=== PATIENT | female | born 1975 ===

== ENCOUNTER 2016-08-18 17:58 | Emergency (ER) | payer OTHER ==
[2016-08-18 18:24] VITALS: BP 134/80; PULSE 74; RESP 18; TEMP 98.2; O2SAT 100
--- NOTE | 2016-08-18 19:10 | ED PDOC ---
HPI: Eye Injury/Pain Time Seen by Provider: 08/18/16 18:03 Chief Complaint (Nursing): Eye Problem Chief Complaint (Provider): Right Eye Irritation History Per: Patient History/Exam Limitations: no limitations Current Symptoms Are (Timing): Still Present Additional Complaint(s): Michelle Contreras, a 40 year oldfemale, presents to the ED with irritation to her right eye. The patient reports that she was working with nail glue and felt like some splashed into her eye. She states that she tried to clean the eye and when she did so a hard clear piece of glue came out. Patient states that she feels like her eye is still irritated and she might have gotten some glue into her eyelashes. Past Medical History Reviewed: Historical Data, Nursing Documentation, Vital Signs Vital Signs: Last Vital Signs Temp 98.2 F 08/18/16 18:22 Pulse 74 08/18/16 18:22 Resp 18 08/18/16 18:22 BP 134/80 08/18/16 18:22 Pulse Ox 100 08/18/16 18:22 - Medical History PMH: No Chronic Diseases - Surgical History Surgical History: No Surg Hx - Family History Family History: States: Unknown Family Hx - Social History Current smoker - smoking cessation education provided: No Alcohol: None Drugs: Denies - Home Medications Home Medications: Ambulatory Orders Medication Instructions Recorded Cyclobenzaprine [Cyclobenzaprine 10 mg PO Q8 PRN #12 tab 10/11/15 HCl] Ibuprofen [Motrin] 600 mg PO TID PRN #30 tab 10/11/15 oxyCODONE/Acetaminophen [Percocet 1 ea PO Q6 PRN #10 tab 10/11/15 5/325 mg Tab] Erythromycin 0.5% [Erythromycin 3.5 gm OP Q4H #1 tube 08/18/16 0.5% Oint] - Allergies Allergies/Adverse Reactions: Allergies Allergy/AdvReac Type Severity Reaction Status Date / Time No Known Allergies Allergy Verified 10/11/15 16:14 Review of Systems Eyes: Negative for: Pain (Eye irritation), Vision Change Physical Exam - Reviewed Nursing Documentation Reviewed: Yes Vital Signs Reviewed: Yes - Physical Exam Appears: Positive for: Non-toxic, No Acute Distress Head Exam: Positive for: NORMAL INSPECTION Skin: Positive for: Normal Color, Warm, Dry Eye Exam: Positive for: EOMI, PERRL, Other (No erythema of conjunctiva or sclera ; No abrasions or foreign bodies.). Negative for: Conjunctival injection Neurologic/Psych: Positive for: Alert, Oriented, Gait - ECG O2 Sat by Pulse Oximetry: 100 (RA) Pulse Ox Interpretation: Normal Medical Decision Making Medical Decision Makin Initial Impression: 40 year old female presenting with eye irritation Initial Plan: 18:30 Fluorescein exam showed no abrasions or foreign bodies. Eyes were irrigated with 250cc using a herbie lens. Patient will be discharged home with eye drops. Scribe Attestation Documented by Aline Espino acting as a scribe for Louise Murillo PA-C. Scribe Attestation All medical record entries made by the Scribe were at my direction and personally dictated by me. I have reviewed the chart and agree that the record accurately reflects my personal performance of the history, physical exam, medical decision making, and the department course for this patient. I have also personally directed, reviewed, and agree with the discharge instructions and disposition. Disposition - Clinical Impression Clinical Impression: Eye irritation - Patient ED Disposition Is Patient to be Admitted: No Counseled Patient/Family Regarding: Studies Performed - Disposition Referrals: Aaron Villeda MD [Staff Provider] - Disposition: Routine/Home Disposition Time: 19:02 Condition: STABLE Additional Instructions: Please follow-up with eye doctor. Prescriptions: Erythromycin 0.5% [Erythromycin 0.5% Oint] 3.5 gm OP Q4H #1 tube
== END 2016-08-18 19:07 | disposition home or self-care (01) ==
LOC: H.ER 17:58
DX: H57.11 Ocular pain, right eye (principal)

== ENCOUNTER 2017-04-08 18:01 | Observation (INO) | payer SELFPAY ==
[2017-04-08] MEDS ORDERED: Sodium Chloride 0.9% 500 ML IV STA (18:21)
--- NOTE | 2017-04-08 18:26 | ED PDOC ---
HPI: Female Pain Time Seen by Provider: 04/08/17 18:15 Chief Complaint (Nursing): Female Genitourinary Chief Complaint (Provider): Female Genitourinary History Per: Patient History/Exam Limitations: no limitations Onset/Duration Of Symptoms: Persistent (x2 weeks) Current Symptoms Are (Timing): Still Present Additional Complaint(s): Michelle Contreras is a 41 year old female with a history of anemia that presents to the ED with a chief complaint of vaginal bleeding that she has been experiencing for the past 14 days. Patient reports associated abdominal cramping , dizziness, headache, and diffuse myalgias. She states that she has never experienced vaginal bleeding that has lasted this long in the past. Patient denies any shortness of breath, cough, congestion, runny nose, or difficulty urinating. Past Medical History Reviewed: Historical Data, Nursing Documentation, Vital Signs Vital Signs: Last Vital Signs Temp 98.3 F 04/08/17 18:04 Pulse 67 04/08/17 18:04 Resp 19 04/08/17 18:04 BP 144/88 04/08/17 18:04 Pulse Ox 100 04/08/17 18:04 - Medical History PMH: Anemia - Surgical History Surgical History: Other surgeries: abdominoplasty, gastric bypass - Family History Family History: States: Unknown Family Hx - Home Medications Home Medications: Ambulatory Orders Medication Instructions Recorded Cyclobenzaprine [Cyclobenzaprine 10 mg PO Q8 PRN #12 tab 10/11/15 HCl] Ibuprofen [Motrin] 600 mg PO TID PRN #30 tab 10/11/15 oxyCODONE/Acetaminophen [Percocet 1 ea PO Q6 PRN #10 tab 10/11/15 5/325 mg Tab] Erythromycin 0.5% [Erythromycin 3.5 gm OP Q4H #1 tube 08/18/16 0.5% Oint] - Allergies Allergies/Adverse Reactions: Allergies Allergy/AdvReac Type Severity Reaction Status Date / Time No Known Allergies Allergy Verified 10/11/15 16:14 Review of Systems ROS Statement: Except As Marked, All Systems Reviewed And Found Negative Constitutional: Positive for: Other (diffuse myalgias) ENT: Negative for: Nose Discharge, Nose Congestion Respiratory: Negative for: Cough, Shortness of Breath Genitourinary Female: Positive for: Vaginal Bleeding. Negative for: Dysuria, Frequency Neurological: Positive for: Headache, Dizziness Physical Exam - Reviewed Nursing Documentation Reviewed: Yes Vital Signs Reviewed: Yes - Physical Exam Appears: Positive for: Uncomfortable Head Exam: Positive for: ATRAUMATIC, NORMOCEPHALIC Skin: Positive for: Normal Color, Warm Eye Exam: Positive for: Normal appearance, EOMI Neck: Positive for: Normal, Supple Cardiovascular/Chest: Positive for: Regular Rate, Rhythm. Negative for: Murmur Respiratory: Positive for: Normal Breath Sounds. Negative for: Wheezing Gastrointestinal/Abdominal: Positive for: Normal Exam, Soft. Negative for: Tenderness Back: Positive for: Normal Inspection. Negative for: L CVA Tenderness, R CVA Tenderness Extremity: Positive for: Normal ROM. Negative for: Deformity, Swelling Neurologic/Psych: Positive for: Alert, Oriented. Negative for: Motor/Sensory Deficits - Laboratory Results Result Diagrams: 04/08/17 19:02 04/08/17 19:02 Interpretation Of Abn Labs: 7.5 hg - ECG ECG: Positive for: Interpreted By Me, Viewed By Me ECG Rhythm: Positive for: Normal QRS, Normal ST Segment, Sinus Rhythm O2 Sat by Pulse Oximetry: 100 (RA) Pulse Ox Interpretation: Normal - Progress ED Course And Treament: 2024: Stable. AAOx3. Will admit to [facility]. - Critical Care Total Time (In Min): 30 Documented Critical Care: Time excludes all time spent performint seperately billable procedures Medical Decision Making Medical Decision Making: Impression: Prolonged Vaginal Bleeding in Anemic Patient Plan: * CMP * CBC * PTT * PT * Type and Screen * ABO/RH Type * Urine Dip * Urine Preg * NaCl 500 mLs at 100 mLs/hr * Reevaluation Scribe Attestation: Documented by Debby Peña, acting as a scribe for Raghu Wolfe MD. Provider Scribe Attestation: All medical record entries made by the Scribe were at my direction and personally dictated by me. I have reviewed the chart and agree that the record accurately reflects my personal performance of the history, physical exam, medical decision making, and the department course for this patient. I have also personally directed, reviewed, and agree with the discharge instructions and disposition. Disposition - Clinical Impression Clinical Impression: Anemia - Patient ED Disposition Is Patient to be Admitted: Yes - Disposition Disposition Time: 20:01 Condition: FAIR - Pt Status Changed To: Hospital Disposition Of: Observation - POA Present On Arrival: None
[2017-04-08 19:12] LABS: BASO # 0.1 K/uL (0.0-0.2); BASO % 1.3 % (0.0-2.0); EOS # 0.1 K/uL (0.0-0.7); EOS % 1.7 % (0.0-4.0); HEMOGLOBIN 7.5 g/dL (12.0-16.0); LYMPH # 1.6 K/uL (1.0-4.3); LYMPH % 30.5 % (20.0-40.0); MEAN CORPUSCULAR HEMOGLOBIN 21.5 pg (27.0-31.0); MEAN CORPUSCULAR HGB CONC 31.4 g/dL (33.0-37.0); MEAN PLATELET VOLUME 9.7 fl (7.2-11.7); MONO # 0.5 K/uL (0.0-0.8); MONO % 10.1 % (0.0-10.0); NEUT % 56.4 % (50.0-75.0); NRBC % 0.2 % (0.0-0.0); RBC 3.51 Mil/uL (3.80-5.20); RED CELL DISTRIBUTION WIDTH 17.1 % (11.5-14.5); WHITE BLOOD COUNT 5.3 K/uL (4.8-10.8)
[2017-04-08 19:20] LABS: MEAN CELL VOLUME 68.4 fl (81.0-99.0)
[2017-04-08 19:22] LABS: ALB/GLOB RATIO 1.3 (1.0-2.1); ALBUMIN 4.1 g/dL (3.5-5.0); ALT/SGPT 43 U/L (9-52); AST/SGOT 33 U/L (14-36); BLOOD UREA NITROGEN 11 mg/dl (7-17); GFR AFRICAN-AMERICAN > 60; GFR NON-AFRICAN AMERICAN > 60
[2017-04-08 19:31] LABS: INR 0.9 (0.9-1.2); PARTIAL THROMBOPLASTIN TIME 23.9 Seconds (25.6-37.1)
[2017-04-08 20:08] VITALS: RESP 18
--- NOTE | 2017-04-08 21:21 | CP.PCM.HP ---
History of Present Illness - History of Present Illness History of Present Illness: 41 yr old F presents to ED with complaint dizziness, cold intolerance and headaches worsening over past 3-4 days. PMHx includes chronic iron deficiency anemia, menorrhagia, abnormal uterine bleeding and gastric bypass. Denies chest pain, palpitations, nausea, vomiting, syncope or visual changes. Denies prior blood transfusion. Reports she has been taking ferrous sulfate 325 mg PO BID. LMP 03/27/17 and has not stopped, 8 heavy flow tampons daily with recurrent bleeding accidents onto clothes and sheets. Patient reports she has not followed up with referrals give clinic for GI and heme/onc because she has been very busy with her children. She reports skipping meals as few foods sit well with her since her gastric bypass. PMD: [facility], last visit with Dr. Ace on 12/26/16 PMHx: chronic iron deficiency anemia, menorrhagia, abnormal uterine bleeding and gastric bypass SurgHx: Gastric bypass 2013, Liposuction 2014, Bilateral tubal ligation 2006, C- section 2006 FMHx: mother is 63-has uterine cancer, rest non-contributory SocHx: former smoker-quit 5 months ago (6 cig daily x 25 yrs), occasional Etoh- 3 beers once a week, denies drugs. 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 Medications: Ferrous sulfate 325mg PO BID, Multivitamin daily, calcium supplement Allergies: NKDA ED course: vitals: BP 144/88 mmHg, Puse 67, Temp 98.3 F, Resp 19, O2 sat 100% on room air -CBC: Hgb 7.5, Hct 24, MCV 68.4, plts 270 -Coags: INR 0.9, PT/PTT 10/23.9 -CMP within normal limits -EKG: sinus bradycardia at 58bpm -ED treatment: 1L NS IVF, transfusion of 2 units pRBC's Present on Admission - Present on Admission Any Indicators Present on Admission: No History of DVT/PE: No History of Uncontrolled Diabetes: No Urinary Catheter: No Decubitus Ulcer Present: No History Surgical Site Infection Following: None Review of Systems - Constitutional Constitutional: Anorexia. absent: Chills, Fever - EENT Eyes: absent: Blurred Vision, Change in Vision Ears: Dizziness Nose/Mouth/Throat: absent: Nasal Congestion, Nasal Discharge - Cardiovascular Cardiovascular: absent: Chest Pain, Dyspnea - Respiratory Respiratory: absent: Cough, Hemoptysis - Gastrointestinal Gastrointestinal: absent: Abdominal Pain, Nausea, Vomiting - Genitourinary Genitourinary: absent: Dysuria - Reproductive: Female Reproductive:Female: Heavy Menses - Musculoskeletal Musculoskeletal: absent: Arthralgias, Back Pain - Integumentary Integumentary: absent: Bleeding Lesions - Neurological Neurological: Headaches. absent: Confusion - Psychiatric Psychiatric: absent: Depression - Endocrine Endocrine: absent: Palpitations, Polydipsia, Polyphagia, Polyuria - Hematologic/Lymphatic Hematologic: absent: Easy Bleeding, Easy Bruising Past Patient History - Infectious Disease Hx of Infectious Diseases: None - Past Social History Smoking Status: Light Smoker < 10 Cigarettes Daily - HEMATOLOGICAL/ONCOLOGICAL Hx Anemia: Yes - PSYCHIATRIC Hx Substance Use: No - SURGICAL HISTORY Hx Section: Yes Hx Gastric Bypass Surgery: Yes Other/Comment: tummy tuck Meds Allergies/Adverse Reactions: Allergies Allergy/AdvReac Type Severity Reaction Status Date / Time No Known Allergies Allergy Verified 10/11/15 16:14 Physical Exam - Constitutional Appears: No Acute Distress - Head Exam Head Exam: ATRAUMATIC, NORMOCEPHALIC - Eye Exam Eye Exam: EOMI (pale conjunctiva), PERRL - ENT Exam ENT Exam: Mucous Membranes Moist - Neck Exam Neck exam: Positive for: Full Rom. Negative for: Lymphadenopathy - Respiratory Exam Respiratory Exam: Clear to Auscultation Bilateral, NORMAL BREATHING PATTERN - Cardiovascular Exam Cardiovascular Exam: REGULAR RHYTHM, +S1, +S2 - GI/Abdominal Exam GI & Abdominal Exam: Normal Bowel Sounds, Soft (obese). absent: Distended, Tenderness - Extremities Exam Extremities exam: Positive for: full ROM, pedal pulses present. Negative for: calf tenderness, pedal edema Additional comments: patient nails painted red-could not assess capillary refill - Neurological Exam Neurological exam: Alert, CN II-XII Intact, Oriented x3 - Psychiatric Exam Psychiatric exam: Normal Affect, Normal Mood - Skin Skin Exam: Dry, Normal Color, Warm Results - Vital Signs Recent Vital Signs: Last Vital Signs Temp 98 F 04/08/17 20:08 Pulse 67 04/08/17 20:08 Resp 18 04/08/17 20:08 BP 131/86 04/08/17 20:08 Pulse Ox 100 04/08/17 20:27 - Labs Result Diagrams: 04/08/17 19:02 04/08/17 19:02 Labs: Laboratory Results - last 24 hr 04/08/17 04/08/17 04/08/17 19:02 19:02 19:02 WBC 5.3 RBC 3.51 L Hgb 7.5 L Hct 24.0 L MCV 68.4 L D MCH 21.5 L MCHC 31.4 L RDW 17.1 H Plt Count 270 MPV 9.7 Neut % (Auto) 56.4 Lymph % (Auto) 30.5 Schleicher % (Auto) 10.1 H Eos % (Auto) 1.7 Baso % (Auto) 1.3 Neut # (Auto) 3.0 Lymph # (Auto) 1.6 Schleicher # (Auto) 0.5 Eos # (Auto) 0.1 Baso # (Auto) 0.1 PT INR APTT Sodium 141 Potassium 4.1 Chloride 103 Carbon Dioxide 23 Anion Gap 19 BUN 11 Creatinine 0.6 L Est GFR ( Amer) > 60 Est GFR (Non-Af Amer) > 60 Random Glucose 89 Calcium 9.0 Total Bilirubin 0.7 AST 33 ALT 43 Alkaline Phosphatase 64 Total Protein 7.3 Albumin 4.1 Globulin 3.1 Albumin/Globulin Ratio 1.3 Blood Type O POSITIVE Antibody Screen Negative BBK History Checked Patient has bt 04/08/17 19:02 WBC RBC Hgb Hct MCV MCH MCHC RDW Plt Count MPV Neut % (Auto) Lymph % (Auto) Schleicher % (Auto) Eos % (Auto) Baso % (Auto) Neut # (Auto) Lymph # (Auto) Schleicher # (Auto) Eos # (Auto) Baso # (Auto) PT 10.0 INR 0.9 APTT 23.9 L Sodium Potassium Chloride Carbon Dioxide Anion Gap BUN Creatinine Est GFR ( Amer) Est GFR (Non-Af Amer) Random Glucose Calcium Total Bilirubin AST ALT Alkaline Phosphatase Total Protein Albumin Globulin Albumin/Globulin Ratio Blood Type Antibody Screen BBK History Checked Assessment & Plan - Assessment and Plan (Free Text) Assessment: 41 yr old F admitted for symptomatic anemia. Patient has history of chronic anemia likely secondary to abnormal uterine bleeding and/or possible malabsorption s/p gastric bypass. 1. Symptomatic Anemia -acute on chronic iron deficiency anemia likely due to abnormal uterine bleeding and/or possible intestinal malabsorption -Hgb 7.5, Hct 24, MCV 68.4, plts 270 -Iron studies 11/16/16: Iron 22, TIBC 481, % sat 4, ferritin 4.7: consistent with iron deficiency anemia -s/p 2 units pRBC's tranfused in ED, IVF -admit to telemetry -f/u transvaginal US -ferrous sulfate 325mg PO TID, Colace 100mg PO BID -Venofer 200mg IV tomorrow -will consider GI and heme/onc referral -f/u next day CBC 2. Abnormal Uterine Bleeding -acute on chronic, hx menorrhagia -LMP 03/27/17-has not stopped since; 8 heavy flow tampons daily with recurrent overflow accidents -outpatient referral to Obgyn 3. DVT prophylaxis -SCD's for now - Date & Time Date: 04/08/17 Time: 21:25
[2017-04-09 05:32] LABS: MEAN CELL VOLUME 71.3 fl (81.0-99.0); MEAN CORPUSCULAR HEMOGLOBIN 22.7 pg (27.0-31.0); MEAN CORPUSCULAR HGB CONC 31.9 g/dL (33.0-37.0); RBC 3.52 Mil/uL (3.80-5.20); WHITE BLOOD COUNT 4.6 K/uL (4.8-10.8)
[2017-04-09] MEDS ORDERED: Pneumococcal 23-Valent Vaccine IM ONE (09:00)
--- NOTE | 2017-04-09 10:51 | US ---
HISTORY: Vaginal bleeding. COMPARISON: Comparison made with prior pelvic ultrasound dated 01/02/2017. TECHNIQUE: Transvaginal sonographic evaluation of the pelvis performed. . The examination is predicated on negative test. FINDINGS: UTERUS: Uterus is anteverted measuring approximately 6.2 x 3.1 x 5.1 cm. Normal in size and appearance. . Submucosal fibroid measuring approximately 1.6 x 1.1 x 1.0 cm felt present. ENDOMETRIUM: Endometrial stripe measures 6.3 mm mm in diameter. Unremarkable. CERVIX: No cervical abnormality identified. RIGHT OVARY: Right ovary measures approximately 1.7 x 1.3 x 1.3 cm. No solid mass. Normal flow. LEFT OVARY: Left ovary measures approximately 2.4 x 1.6 x 1.4 cm. No solid mass. Normal flow. FREE FLUID: No significant free fluid noted. OTHER FINDINGS: None. IMPRESSION: Small submucosal fibroid.
[2017-04-09 11:05] LABS: HEMOGLOBIN 9.7 g/dL (12.0-16.0); MEAN CELL VOLUME 73.1 fl (81.0-99.0); MEAN CORPUSCULAR HEMOGLOBIN 23.6 pg (27.0-31.0); MEAN CORPUSCULAR HGB CONC 32.3 g/dL (33.0-37.0); RBC 4.12 Mil/uL (3.80-5.20); RED CELL DISTRIBUTION WIDTH 20.4 % (11.5-14.5)
--- NOTE | 2017-04-09 11:10 | CP.PCM.DIS ---
Provider - Provider Date of Admission: 04/08/17 20:23 Attending physician: Cindy Terrazas MD Primary care physician: [facility] Time Spent in preparation of Discharge (in minutes): 40 Diagnosis - Discharge Diagnosis (1) Menorrhagia with irregular cycle Status: Acute (2) Iron deficiency anemia Status: Chronic (3) Dizziness Status: Acute Hospital Course - Lab Results Lab Results: Most Recent Lab Values WBC 5.0 K/uL (4.8-10.8) 04/09/17 10:50 RBC 4.12 Mil/uL (3.80-5.20) 04/09/17 10:50 Hgb 9.7 g/dL (12.0-16.0) L 04/09/17 10:50 Hct 30.1 % (34.0-47.0) L 04/09/17 10:50 MCV 73.1 fl (81.0-99.0) L 04/09/17 10:50 MCH 23.6 pg (27.0-31.0) L 04/09/17 10:50 MCHC 32.3 g/dL (33.0-37.0) L 04/09/17 10:50 RDW 20.4 % (11.5-14.5) H 04/09/17 10:50 Plt Count 257 K/uL (130-400) 04/09/17 10:50 MPV 9.7 fl (7.2-11.7) 04/08/17 19:02 Neut % (Auto) 56.4 % (50.0-75.0) 04/08/17 19:02 Lymph % (Auto) 30.5 % (20.0-40.0) 04/08/17 19:02 Larue % (Auto) 10.1 % (0.0-10.0) H 04/08/17 19:02 Eos % (Auto) 1.7 % (0.0-4.0) 04/08/17 19:02 Baso % (Auto) 1.3 % (0.0-2.0) 04/08/17 19:02 Neut # (Auto) 3.0 K/uL (1.8-7.0) 04/08/17 19:02 Lymph # (Auto) 1.6 K/uL (1.0-4.3) 04/08/17 19:02 Larue # (Auto) 0.5 K/uL (0.0-0.8) 04/08/17 19:02 Eos # (Auto) 0.1 K/uL (0.0-0.7) 04/08/17 19:02 Baso # (Auto) 0.1 K/uL (0.0-0.2) 04/08/17 19:02 PT 10.0 Seconds (9.8-13.1) 04/08/17 19:02 INR 0.9 (0.9-1.2) 04/08/17 19:02 APTT 23.9 Seconds (25.6-37.1) L 04/08/17 19:02 Sodium 141 mmol/l (132-148) 04/08/17 19:02 Potassium 4.1 MMOL/L (3.6-5.0) 04/08/17 19:02 Chloride 103 mmol/L (98-107) 04/08/17 19:02 Carbon Dioxide 23 mmol/L (22-30) 04/08/17 19:02 Anion Gap 19 (10-20) 04/08/17 19:02 BUN 11 mg/dl (7-17) 04/08/17 19:02 Creatinine 0.6 mg/dl (0.7-1.2) L 04/08/17 19:02 Est GFR ( Amer) > 60 04/08/17 19:02 Est GFR (Non-Af Amer) > 60 04/08/17 19:02 Random Glucose 89 mg/dL (65-105) 04/08/17 19:02 Calcium 9.0 mg/dL (8.4-10.2) 04/08/17 19:02 Total Bilirubin 0.7 mg/dl (0.2-1.3) 04/08/17 19:02 AST 33 U/L (14-36) 04/08/17 19:02 ALT 43 U/L (9-52) 04/08/17 19:02 Alkaline Phosphatase 64 U/L (38-126) 04/08/17 19:02 Total Protein 7.3 G/DL (6.3-8.2) 04/08/17 19:02 Albumin 4.1 g/dL (3.5-5.0) 04/08/17 19:02 Globulin 3.1 gm/dL (2.2-3.9) 04/08/17 19:02 Albumin/Globulin Ratio 1.3 (1.0-2.1) 04/08/17 19:02 Blood Type O POSITIVE 04/08/17 19:02 Antibody Screen Negative 04/08/17 19:02 Crossmatch See Detail 04/08/17 19:02 BBK History Checked Patient has bt 04/08/17 19:02 - Hospital Course Hospital Course: Patient is a 41 y.o. F w/ PMHx of chronic iron deficiency, menorrhagia and gastric bypass who presented to ED c/o dizziness and headache x3-4d. In ED, Hgb was 7.5L and MCV of 68.4L. Patient was started on 1L NS IVF and 2 units of pRBCs transfusion. Post-transfusion, repeat Hgb 9.7L and MCV 73.1L. Patient will be discharge home with ER precautions and follow up PMD. Discharge plan: - Ferrous sulfate 325mg BID and Colace BID - Continue Multivitamin - Give Calcium citrate 500-600mg x3/day (separate doses by at least 2 hrs for maximum absorption) - Give Vit D3 3000 units/day - Give Vit B12 500 mcg/day or 1000mcg every other day - Norethindrone 5mg BID/7days followed by once/7days - Date & Time of H&P Date of H&P: 04/08/17 Time of H&P: 21:21 Discharge Exam - Head Exam Head Exam: ATRAUMATIC, NORMOCEPHALIC - Eye Exam Eye Exam: Normal appearance - ENT Exam ENT Exam: Mucous Membranes Moist - Respiratory Exam Respiratory Exam: NORMAL BREATHING PATTERN - Cardiovascular Exam Cardiovascular Exam: REGULAR RHYTHM - GI/Abdominal Exam GI & Abdominal Exam: Normal Bowel Sounds - Extremities Exam Extremities exam: normal capillary refill, pedal pulses present - Neurological Exam Neurological exam: Alert, CN II-XII Intact, Oriented x3 - Psychiatric Exam Psychiatric exam: Normal Affect - Skin Skin Exam: Dry, Intact, Normal Color, Warm Discharge Plan - Discharge Medications Prescriptions: Calcium Carbonate [Calcium] 500 mg PO TID #90 tablet Cholecalciferol [Vitamin D] 3,000 iu PO ONCE #30 tab Cyanocobalamin (Vitamin B-12) [Vitamin B-12] 500 mcg PO ONCE #30 lozenge Docusate [Colace] 100 mg PO BID PRN #60 cap PRN Reason: Constipation Ferrous Sulfate [Feosol] 325 mg PO TID #60 tab Norethindrone 5 mg PO BID #21 tablet - Follow Up Plan Condition: FAIR Disposition: HOME/ ROUTINE Referrals: Provider TBD, [Primary Care Provider] -
[2017-04-09 12:03] VITALS: BP 139/86; PULSE 56; TEMP 98.6; O2SAT 99
--- NOTE | 2017-04-09 19:11 | CARD ---
APPROVED REPORT EKG Measurement Heart [id number] <Conclusion> Sinus bradycardia Otherwise normal ECG
== END 2017-04-09 15:50 | disposition home or self-care (01) ==
LOC: H.ER 18:01 → SUPCPDRO 18:01 → H.ERHOLD 20:23 → H.TEL 22:17
PROVIDERS: ADMIT Family Medicine Geriatric Medicine; ATTEND Family Medicine Geriatric Medicine
DX: N92.1 Excessive and frequent menstruation with irregular cycle (principal); D50.9 Iron deficiency anemia, unspecified; Z98.84 Bariatric surgery status; Z68.34 Body mass index [BMI] 34.0-34.9, adult; Z87.891 Personal history of nicotine dependence; Z23 Encounter for immunization
CPT/HCPCS: 36415; 36430; 76830; 80053; 81025; 85025; 85027; 85610; 85730; 86850; 86900; 86920; 90471; 90732; 93005; 99285; G0378; J1756; J7040; P9051

== ENCOUNTER 2017-05-12 10:14 | Emergency (ER) | payer SELFPAY ==
[2017-05-12 10:22] VITALS: BP 149/120; PULSE 88; RESP 18; TEMP 97.5; O2SAT 98
[2017-05-12 11:32] LABS: BASO # 0.1 K/uL (0.0-0.2); BASO % 0.8 % (0.0-2.0); EOS # 0.1 K/uL (0.0-0.7); EOS % 1.1 % (0.0-4.0); HEMOGLOBIN 11.8 g/dL (12.0-16.0); LYMPH # 2.1 K/uL (1.0-4.3); LYMPH % 28.1 % (20.0-40.0); MEAN CELL VOLUME 77.7 fl (81.0-99.0); MEAN CORPUSCULAR HGB CONC 32.2 g/dL (33.0-37.0); MEAN PLATELET VOLUME 9.8 fl (7.2-11.7); MONO # 0.5 K/uL (0.0-0.8); MONO % 7.2 % (0.0-10.0); NEUT # 4.6 K/uL (1.8-7.0); NEUT % 62.8 % (50.0-75.0); NRBC % 0.1 % (0.0-0.0); RBC 4.7 Mil/uL (3.80-5.20); RED CELL DISTRIBUTION WIDTH 27.6 % (11.5-14.5); WHITE BLOOD COUNT 7.4 K/uL (4.8-10.8)
[2017-05-12 11:41] LABS: BLOOD UREA NITROGEN 11 mg/dl (7-17); CALCIUM 9.5 mg/dL (8.4-10.2); GFR AFRICAN-AMERICAN > 60; GFR NON-AFRICAN AMERICAN > 60
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
== END 2017-05-12 12:54 | disposition home or self-care (01) ==
LOC: H.ER 10:14
DX: D64.9 Anemia, unspecified (principal); Z04.3 Encounter for examination and observation following other accident; V47.5XXA Car driver injured in collision with fixed or stationary object in traffic accident, initial encounter

== ENCOUNTER 2018-05-01 00:38 | Emergency (ER) | payer SELFPAY ==
[2018-05-01 00:55] VITALS: BP 130/82; PULSE 72; RESP 17; TEMP 98.4; O2SAT 99
[2018-05-01] MEDS ORDERED: Sodium Chloride 0.9% 1,000 ML IV STA (01:59)
[2018-05-01 02:36] LABS: BASO # 0.1 K/uL (0.0-0.2); BASO % 2.3 % (0.0-2.0); EOS # 0.3 K/uL (0.0-0.7); EOS % 4.9 % (0.0-4.0); HEMOGLOBIN 8.5 g/dL (12.0-16.0); MEAN CORPUSCULAR HEMOGLOBIN 21.6 pg (27.0-31.0); MEAN CORPUSCULAR HGB CONC 31.2 g/dL (33.0-37.0); MEAN PLATELET VOLUME 9.6 fl (7.2-11.7); MONO # 0.4 K/uL (0.0-0.8); MONO % 7.9 % (0.0-10.0); NEUT # 2.5 K/uL (1.8-7.0); NEUT % 46.9 % (50.0-75.0); NRBC % 0.1 % (0.0-0.0); RBC 3.94 Mil/uL (3.80-5.20); RED CELL DISTRIBUTION WIDTH 16.9 % (11.5-14.5); WHITE BLOOD COUNT 5.3 K/uL (4.8-10.8)
[2018-05-01 02:37] LABS: INR 0.9; PROTHROMBIN TIME 10.2 Seconds (9.8-13.1)
[2018-05-01 02:40] LABS: PARTIAL THROMBOPLASTIN TIME 25.6 Seconds (25.6-37.1)
--- NOTE | 2018-05-01 02:40 | ED PDOC ---
Syncope/Near Syncope/Dizziness Time Seen by Provider: 05/01/18 00:54 Chief Complaint (Nursing): Weakness/Neurological Deficit Chief Complaint (Provider): Weakness/Neurological Deficit History Per: Patient Onset/Duration Of Symptoms: Days Current Symptoms Are (Timing): Still Present Additional Complaint(s): 42 y/o female with a PMHx of Anemia present to the ED for evaluation of weakness, onset one day ago. Patient reports of feeling increasingly weak and tired since yesterday. Patient notes of having passed out for a few seconds. Patient states that the syncopal episode may be related to her anemia. Patient reports of taking Multivitamins with Iron three times a day. Patient states she is unsure of the cause of her anemia. Otherwise, patient denies heavy vaginal bleeding and rectal bleeding. Patient additionally reports of developing shortness of breath associated with chest tightness earlier today. PMD: none provided Past Medical History Reviewed: Historical Data, Nursing Documentation, Vital Signs Vital Signs: Last Vital Signs Temp 98.4 F 05/01/18 00:51 Pulse 72 05/01/18 00:51 Resp 17 05/01/18 00:51 BP 130/82 05/01/18 00:51 Pulse Ox 99 05/01/18 00:51 - Medical History PMH: Anemia Denies: Chronic Kidney Disease - Surgical History Surgical History: - Family History Family History: States: Unknown Family Hx - Home Medications Home Medications: Ambulatory Orders Medication Instructions Recorded Cyclobenzaprine [Flexeril] 10 mg PO Q8 PRN #12 tab 10/11/15 Ibuprofen [Motrin Tab] 600 mg PO TID PRN #30 tab 10/11/15 oxyCODONE/Acetaminophen [Percocet 1 ea PO Q6 PRN #10 tab 10/11/15 5/325 mg Tab] Erythromycin 0.5% [Erythromycin 3.5 gm OP Q4H #1 tube 08/18/16 0.5% Oint] Calcium Carbonate [Calcium] 500 mg PO TID #90 tablet 04/09/17 Cholecalciferol [Vitamin D] 3,000 iu PO ONCE #30 tab 04/09/17 Cyanocobalamin (Vitamin B-12) 500 mcg PO ONCE #30 lozenge 04/09/17 [Vitamin B-12] Docusate [Colace] 100 mg PO BID PRN #60 cap 04/09/17 Ferrous Sulfate [Feosol] 325 mg PO TID #60 tab 04/09/17 Norethindrone 5 mg PO BID #21 tablet 04/09/17 Cyclobenzaprine [Flexeril] 5 mg PO Q8 PRN #6 tab 05/12/17 Ibuprofen [Motrin Tab] 600 mg PO Q6 PRN #15 tab 05/12/17 Iron,Carb/Vit C/Vit B12/Folic 1 each PO BID #30 tablet 05/01/18 [Iron 100 Plus Tablet] - Allergies Allergies/Adverse Reactions: Allergies Allergy/AdvReac Type Severity Reaction Status Date / Time No Known Allergies Allergy Verified 10/11/15 16:14 Review of Systems ROS Statement: Except As Marked, All Systems Reviewed And Found Negative Constitutional: Positive for: Weakness, Other (fatigue) Cardiovascular: Positive for: Chest Pain (tightness) Respiratory: Positive for: Shortness of Breath Gastrointestinal: Negative for: Rectal Pain (bleeding) Genitourinary Female: Negative for: Vaginal Bleeding Physical Exam - Reviewed Nursing Documentation Reviewed: Yes Vital Signs Reviewed: Yes - Physical Exam Appears: Positive for: No Acute Distress Head Exam: Positive for: ATRAUMATIC Skin: Positive for: Warm, Dry, Pallor Eye Exam: Positive for: Normal appearance, EOMI, PERRL. Negative for: Conjunctival injection Neck: Positive for: Normal, Painless ROM, Supple Cardiovascular/Chest: Positive for: Regular Rate, Rhythm. Negative for: Murmur Respiratory: Positive for: Normal Breath Sounds. Negative for: Respiratory Distress Gastrointestinal/Abdominal: Positive for: Normal Exam, Soft. Negative for: Tenderness Extremity: Positive for: Normal ROM. Negative for: Deformity Neurological/Psych: Positive for: Awake, Alert, Oriented, pest locator II-XII (intact). Negative for: Motor/Sensory Deficits - Laboratory Results Result Diagrams: 05/01/18 02:22 05/01/18 02:22 - ECG O2 Sat by Pulse Oximetry: 99 (RA) Pulse Ox Interpretation: Normal Medical Decision Making Medical Decision Making: Time: 0159 A/P: 42 y/o female with nonspecific weakness. Possibly related to anemia -- Type and Screen -- EKG -- BMP -- Liver Profile -- Troponin I -- CBC with Differentials -- PTT -- Prothrombin Time -- Sodium Chloride IV 1000 mls/hr Time: 0502 -- On re-evaluation, patient reports of an improvement in symptoms and is no longer complaining of dizziness. Patient is stable for discharge home with a diagnosis of anemia and dizziness. Patient instructed to follow up with a the [facility] for further evaluation. Patient additionally instructed to take more supplemental iron. No transfusion needed at this time. Scribe Attestation: Documented by Luther Anaya, acting as a scribe for Adi Kamara MD. Provider Scribe Attestation: All medical record entries made by the Scribe were at my direction and personally dictated by me. I have reviewed the chart and agree that the record accurately reflects my personal performance of the history, physical exam, medical decision making, and the department course for this patient. I have also personally directed, reviewed, and agree with the discharge instructions and disposition. Disposition - Clinical Impression Clinical Impression: Anemia, Dizziness - Patient ED Disposition Is Patient to be Admitted: No Counseled Patient/Family Regarding: Studies Performed, Diagnosis, Need For Follo wup, Rx Given - Disposition Referrals: [facility] [Outside] Disposition: Routine/Home Disposition Time: 05:02 Condition: IMPROVED Prescriptions: Iron,Carb/Vit C/Vit B12/Folic [Iron 100 Plus Tablet] 1 each PO BID #30 tablet Instructions: Anemia Caused by Low Iron, Dizziness, Nonvertigo, (DC) Forms: [employer] (French)
[2018-05-01 02:43] LABS: ALB/GLOB RATIO 1.4 (1.0-2.1); ALBUMIN 4.5 g/dL (3.5-5.0); ALT/SGPT 30 U/L (9-52); AST/SGOT 29 U/L (14-36); BILIRUBIN,DIRECT 0.2 mg/ml (0.0-0.4); BLOOD UREA NITROGEN 11 mg/dl (7-17); CALCIUM 9.1 mg/dL (8.4-10.2); GFR NON-AFRICAN AMERICAN > 60; MEAN CELL VOLUME 69.1 fl (81.0-99.0)
--- NOTE | 2018-05-01 08:56 | CARD ---
APPROVED REPORT Date of service: 05/01/2018 EKG Measurement Heart [id number] <Conclusion> Normal sinus rhythm Normal Electrocardiogram
== END 2018-05-01 05:06 | disposition home or self-care (01) ==
LOC: H.ER 00:38
DX: R42 Dizziness and giddiness (principal); D64.9 Anemia, unspecified